=== PATIENT | female | born 1965 | race Caucasian/White ===

== ENCOUNTER 2018-08-08 12:14 | Emergency (ER) | payer OTHER ==
[2018-08-08 12:43] VITALS: PULSE 68; BMI 27.4
[2018-08-08] MEDS ORDERED: SODIUM CHLORIDE 1,000 ML IV STA (13:57)
[2018-08-08] MEDS ORDERED: ACETAMINOPHEN 1000 MG/100 ML VIAL (NON FORMULARY) IVPB ONE (13:57)
--- NOTE | 2018-08-08 13:58 | PDOC ---
History of Present Illness - General Chief Complaint: Migraine Headache Stated Complaint: VOMITING History Source: Patient Exam Limitations: No Limitations - History of Present Illness Initial Comments: 08/08/18 13:53 53 yo F with hx of HTN, migraines, HLD, and asthma presents to the emergency department with new quality headache in setting of elevated blood pressure, nausea, and vomiting. 08/08/18 14:12 Past History - Past Medical History Allergies/Adverse Reactions: Allergies Allergy/AdvReac Type Severity Reaction Status Date / Time No Known Allergies Allergy Verified 08/11/16 11:58 Home Medications: Ambulatory Orders Albuterol Sulfate Inhaler - [Ventolin Hfa Inhaler -] 1 - 2 inh PO QID 08/11/16 Diltiazem [Cardizem -] 120 mg PO DAILY 08/11/16 Tiotropium [place] [Spiriva] 18 mcg IH DAILY 08/11/16 Asthma: Yes HTN: Yes Hypercholesterolemia: Yes - Suicide/Smoking/Psychosocial Hx Smoking History: Never smoked Have you smoked in the past 12 months: No Number of Cigarettes Smoked Daily: 1 Information on smoking cessation initiated: No Hx Alcohol Use: No Drug/Substance Use Hx: No *Physical Exam - Vital Signs Last Vital Signs Temp Pulse Resp BP Pulse Ox 97.6 F 68 16 156/78 99 08/08/18 12:40 08/08/18 12:40 08/08/18 12:40 08/08/18 12:40 08/08/18 12:40 Moderate Sedation - Procedure Monitoring Vital Signs: Procedure Monitoring Vital Signs Temperature 97.6 F 08/08/18 12:40 Pulse Rate 68 08/08/18 12:40 Respiratory Rate 16 08/08/18 12:40 Blood Pressure 156/78 08/08/18 12:40 O2 Sat by Pulse Oximetry (%) 99 08/08/18 12:40 ED Treatment Course - LABORATORY CBC & Chemistry Diagram: 08/08/18 14:25 08/08/18 14:25 *DC/Admit/Observation/Transfer Diagnosis at time of Disposition: Headache Qualifiers: Headache type: unspecified Headache chronicity pattern: unspecified pattern Intractability: intractable Qualified Code(s): R51 - Headache Nausea & vomiting Qualifiers: Vomiting type: unspecified Vomiting Intractability: intractable Qualified Code( s): R11.2 - Nausea with vomiting, unspecified - Discharge Dispostion Disposition: HOME Condition at time of disposition: Stable Decision to Admit order: No - Referrals Referrals: Shin Yan MD [Primary Care Provider] - - Patient Instructions Additional Instructions: you were seen in the emergency department for nausea, vomiting, and headache. your head CT was negative for acute processes. Your lab work was within normal limits with your WBC a touch elevated likely reactive due to vomiting. Please maintain hydration while at home and take tylenol and motrin as directed on the label for pain relief. Please follow up with your primary medical doctor within 72 hours after discharge for follow up care. Please return to the emergency department if you develop fever, chills, chest pain, shortness of breath, one sided weakness, and visual changes. thank you. - Post Discharge Activity Forms/Work/School Notes: Back to Work
[2018-08-08] MEDS ORDERED: METOCLOPRAMIDE HCL INJECTION 10 MG/2 ML VIAL IVPUSH ONE (14:04)
[2018-08-08] MEDS ORDERED: METOCLOPRAMIDE HCL INJECTION 10 MG/2 ML VIAL ONE (15:10)
[2018-08-08 15:18] LABS: EOS % 4.2 % (0-4.5); HEMOGLOBIN 13.8 GM/dL (10.7-15.3); LYMPH % 23.9 % (8-40); MCH 28.5 pg (25.7-33.7); MCHC 32.9 g/dl (32.0-36.0); MEAN CELL VOLUME 86.8 fl (80-96); MEAN PLT VOLUME 8.6 fl (7.5-11.1); MONO % 4.6 % (3.8-10.2); NEUT % 66.3 % (42.8-82.8); PLATELET COUNT 301 K/MM3 (134-434); RBC 4.84 M/mm3 (3.60-5.2); WHITE BLOOD COUNT 11.9 K/mm3 (4.0-10.0)
[2018-08-08 15:29] LABS: HCG,QUALITATIVE URINE Negative
[2018-08-08 15:34] LABS: ALBUMIN 3.9 g/dl (3.4-5.0); ALK PHOS 95 U/L (45-117); ANION GAP 7 MMOL/L (8-16); BILIRUBIN,TOTAL 0.4 mg/dL (0.2-1); BLOOD UREA NITROGEN 13 mg/dL (7-18); CALCIUM 8.8 mg/dL (8.5-10.1); CHLORIDE 108 mmol/L (98-107); CO2 26 mmol/L (21-32); CREATININE 0.7 mg/dL (0.55-1.3); GLUCOSE,RANDOM 134 mg/dL (74-106); POTASSIUM 3.9 mmol/L (3.5-5.1); SGOT/AST 15 U/L (15-37); SGPT/ALT 25 U/L (13-61); SODIUM 142 mmol/L (136-145)
[2018-08-08 15:37] LABS: URINE APPEARANCE CLEAR; URINE BILIRUBIN NEGATIVE (<2.0 mg/dL); URINE COLOR LTYELLOW; URINE GLUCOSE (UA) NEGATIVE (NEGATIVE); URINE KETONE NEGATIVE (NEGATIVE); URINE LEUK ESTERASE NEGATIVE (NEGATIVE); URINE NITRITE NEGATIVE (NEGATIVE); URINE PROTEIN NEGATIVE (NEGATIVE); URINE UROBILINOGEN NEGATIVE mg/dL (0.2-1.0)
[2018-08-08 15:40] LABS: EPI CELLS RARE /HPF (FEW); URINE MUCUS RARE
--- NOTE | 2018-08-08 15:47 | EKG ---
Test Reason : Blood Pressure : / mmHG Vent. Rate : 072 BPM Atrial Rate : 072 BPM P-R Int : 114 ms QRS Dur : 082 ms QT Int : 386 ms P-R-T Axes : 041 038 056 degrees QTc Int : 422 ms NORMAL SINUS RHYTHM T WAVE ABNORMALITY, CONSIDER ANTERIOR ISCHEMIA ABNORMAL ECG NO PREVIOUS ECGS AVAILABLE Confirmed by TAMAR ZEPEDA MD ([id number]) on 08/08/2018 3:47:17 PM Referred By: Confirmed By:TAMAR ZEPEDA MD
--- NOTE | 2018-08-08 17:03 | PDOC ---
Attending Attestation - Resident Resident Name: Leonel Ordonez - ED Attending Attestation I have performed the following: I have examined & evaluated the patient, The case was reviewed & discussed with the resident, I agree w/resident's findings & plan - HPI HPI: 08/08/18 16:59 Ms. 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 The patient reports at work she was noted to have elevated BP associated with nausea and vomiting. The patient reports she hasnt been compliant with her HTN medication for the past 1 month. The patient reports associated concern of bilateral temporal headache associated with eye pressure. The patient reports a hx of migraine, denies the symptoms are similar. Denies any focal deficit, chest pain, shortness of breath. Allergies: NKDA PCP: Shin Jewell MD - Physicial Exam PE: 08/08/18 16:59 NAD, well appearing, MMM, nl conjunctiva, anicteric; neck supple. lungs clear, RRR, abdomen soft nontender. VIGIL x4, no focal neuro deficits. No peripheral edema. normal color for ethnicity, WWP. CN II-XII grossly intact. gait stable. no cerebellar signs. - Medical Decision Making 08/08/18 17:01 see HPI for details Vitals with improved BP well appearing, no neuro deficits CT head neg, no CVA or mass labs and lytes, trop neg. EKG NSR, nonspecific T wave abnormalities in anterior leads given IVF and headache controlled, ambulatory and remains comfortable and eager for discharge. no s/s infection BP check as outpatient. ESR_5, unlikely temporal arteritis. DC in stable condition, pcp follow up for bp recheck and management, mayneed to go back on prior regimen that did not cause side effects (diltiazem) 08/10/18 07:13
[2018-08-08 17:11] LABS: ERYTHROCYTE SEDIMENTATION RATE 5 mm/hr (0-30)
[2018-08-08 17:25] VITALS: BP 149/97; TEMP 98
== END 2018-08-08 17:26 | disposition home or self-care (01) ==
LOC: JER 12:14
PROC: 3E033NZ Introduction of Analgesics, Hypnotics, Sedatives into Peripheral Vein, Percutaneous Approach (ICD-10-PCS; principal; 2018-08-08)
PROC: 3E0337Z Introduction of Electrolytic and Water Balance Substance into Peripheral Vein, Percutaneous Approach (ICD-10-PCS; 2018-08-08)
DX: R11.2 Nausea with vomiting, unspecified (principal); R51 Headache; I10 Essential (primary) hypertension; E78.00 Pure hypercholesterolemia, unspecified; J45.909 Unspecified asthma, uncomplicated
CPT/HCPCS: 36415; 70450-TC; 71046-TC-FY; 80053; 81003; 81015; 82550; 84484; 84703; 85025; 85651; 86140; 87086; 93005; 93010; 96361; 96374; 99284-25; J0131; J7030

== ENCOUNTER 2019-08-11 01:36 | Emergency (ER) | payer BC, OTHER ==
[2019-08-11 01:49] VITALS: BP 162/85; PULSE 98; TEMP 98; BMI 21.5
--- NOTE | 2019-08-11 02:14 | PDOC ---
History of Present Illness - General Chief Complaint: Nasal Bleeding Stated Complaint: BLEEDING OF MOUTH AND NOSE Time Seen by Provider: 08/11/19 01:57 History Source: Patient Exam Limitations: No Limitations - History of Present Illness Initial Comments: 08/11/19 02:12 Patient is a 54F with history of HTN here today complaining of nosebleed that started Monday. Patient was seen at [facility] on Monday for nosebleed, and they had nasal packing placed. Patient denies trauma, nosepicking, viral illness. Patient was told to return to ED on Monday for further evaluation and possible removal. Patient states she came to the ED today because she continued to have some bleeding, including from the R nare. Denies SOB, chest pain, weakness. Denies nausea, voimting, fevers, chills. Past History - Past Medical History Allergies/Adverse Reactions: Allergies Allergy/AdvReac Type Severity Reaction Status Date / Time No Known Allergies Allergy Verified 08/11/19 01:43 Home Medications: Ambulatory Orders Albuterol Sulfate Inhaler - [Ventolin Hfa Inhaler -] 1 - 2 inh PO QID 08/11/16 Diltiazem [Cardizem -] 120 mg PO DAILY 08/11/16 Tiotropium [place] [Spiriva] 18 mcg IH DAILY 08/11/16 Asthma: Yes COPD: No CHF: No HTN: Yes Hypercholesterolemia: Yes - Immunization History Immunization Up to Date: No - Psycho Social/Smoking Cessation Hx Smoking History: Never smoked Have you smoked in the past 12 months: No Number of Cigarettes Smoked Daily: 1 Information on smoking cessation initiated: No Hx Alcohol Use: No Drug/Substance Use Hx: No Review of Systems - Review of Systems Able to Perform ROS?: Yes Comments:: 08/11/19 02:14 GENERAL/CONSTITUTIONAL: No fever or chills. No weakness. HEAD, EYES, EARS, NOSE AND THROAT: No change in vision. No ear pain or discharge. No sore throat. +nosebleed CARDIOVASCULAR: No chest pain or shortness of breath RESPIRATORY: No cough, wheezing, or hemoptysis. GASTROINTESTINAL: No nausea, vomiting, diarrhea or constipation. GENITOURINARY: No dysuria, frequency, or change in urination. MUSCULOSKELETAL: No joint or muscle swelling or pain. No neck or back pain. SKIN: No rash NEUROLOGIC: No headache, vertigo, loss of consciousness, or change in strength/ sensation. HEMATOLOGIC/LYMPHATIC: No anemia, easy bleeding, or history of blood clots. ALLERGIC/IMMUNOLOGIC: No hives or skin allergy. *Physical Exam - Vital Signs Last Vital Signs Temp Pulse Resp BP Pulse Ox 98.0 F 98 H 20 162/85 97 08/11/19 01:43 08/11/19 01:43 08/11/19 01:43 08/11/19 01:43 08/11/19 01:43 - Physical Exam 08/11/19 02:15 GENERAL: Awake, alert, and fully oriented, in no acute distress HEAD: No signs of trauma, normocephalic, atraumatic EYES: PERRLA, EOMI, sclera anicteric, conjunctiva clear ENT: Auricles normal inspection, hearing grossly normal, nares patent, oropharynx clear without exudates. Nasal packing L nare. Dried blood in R nare. No active bleeding. NECK: Normal ROM, supple, no lymphadenopathy, JVD, or masses LUNGS: No distress, speaks full sentences, clear to auscultation bilaterally HEART: Regular rate and rhythm, normal S1 and S2, no murmurs, rubs or gallops, peripheral pulses normal and equal bilaterally. ABDOMEN: Soft, nontender, normoactive bowel sounds. No guarding, no rebound. No masses EXTREMITIES: Normal inspection, Normal range of motion, no edema. No clubbing or cyanosis. NEUROLOGICAL: Cranial nerves II through XII grossly intact. Normal speech, normal gait, no focal sensorimotor deficits SKIN: Warm, Dry, normal turgor, no rashes or lesions noted. Medical Decision Making - Medical Decision Making 08/11/19 02:15 Patient is 54F with nosebleed. Vitals normal and stable. No signs of symptomatic anemia. Will discharge with instructions to follow up at [facility] as originally planned. Will also give our ENT follow up. Given education on how to apply pressure properly. Patient requesting CT to "find where the bleed is", educated on why this is inappropriate. Given return precautions. 08/11/19 05:18 Patient developed new bleeding. Controlled with txa pledget, will discharge. Discharge - Discharge Information Problems reviewed: Yes Clinical Impression/Diagnosis: Bleeding nose Condition: Good Disposition: HOME - Admission No - Follow up/Referral Referrals: Shin Yan MD [Primary Care Provider] - Nikolay Ashby MD [Staff Physician] - - Patient Discharge Instructions Patient Printed Discharge Instructions: DI for Nosebleed Additional Instructions: Please pinch your nose at the bottom of your nostrils when you have a nose bleed. Please follow up with [facility] as planned. Please return to the ED if you have any new, worsening or concerning symptoms, especially weakness, chest pain or shortness of breath. - Post Discharge Activity Work/Back to School Note: Back to Work
--- NOTE | 2019-08-11 02:19 | PDOC ---
Attending Attestation - Resident Resident Name: Malik Delvalle - ED Attending Attestation I have performed the following: I have examined & evaluated the patient, The case was reviewed & discussed with the resident, I agree w/resident's findings & plan - HPI HPI: 08/11/19 02:20 Pt comes with right sided nasal bleeding. She had a rhino rocket in place on the left side placed in [facility] yesterday Pt has HTN and she takes verapamil 120mg tabs daily for it. Bleeding tapered at this time - Physicial Exam PE: 08/11/19 04:14 Pt has no active nosebleed the entire time that she was here, but just started bleeding minimally from the right nare. Left nare is packed with rhino rocket. No blood in the back of the throat, but when pt leans back she is able to spit up blood. Heart RRR Lungs clear afebrile Systolic BP is 167 - Medical Decision Making 08/11/19 22:14 Pt. treated with her own verapamil PO (as we do not carry that) and tranxamic acid placed on a gauze and placed in patient's right nare. Once bleeding was controlled, she was sent home She is going to follow with the [facility] ER later today, as scheduled. We also gave her the name of Dr. Ashby, ENT affiliated with [facility]
[2019-08-11] MEDS ORDERED: traMADol HCL 50 MG TABLET PO ONE (04:17)
[2019-08-11] MEDS ORDERED: TRANEXAMIC ACID 1000 MG/10 ML VIAL IVPUSH ONE (04:20)
[2019-08-11] MEDS ORDERED: TRANEXAMIC ACID 1000 MG/10 ML VIAL ONE (04:23)
[2019-08-11] MEDS ORDERED: traMADol HCL 50 MG TABLET ONE (04:42)
== END 2019-08-11 05:50 | disposition home or self-care (01) ==
LOC: JER 01:36
PROC: 093K7ZZ Control Bleeding in Nasal Mucosa and Soft Tissue, Via Natural or Artificial Opening (ICD-10-PCS; principal; 2019-08-11)
DX: R04.0 Epistaxis (principal); I10 Essential (primary) hypertension; J45.909 Unspecified asthma, uncomplicated; E78.00 Pure hypercholesterolemia, unspecified
CPT/HCPCS: 99281-25